=== PATIENT | female | born 1970 | race Caucasian/White ===

== ENCOUNTER 2020-01-06 12:59 | Outpatient (CLI) | payer BC, SELFPAY ==
--- NOTE | 2020-01-06 13:14 | MM_ITS ---
WS: [id number] DIAGNOSTIC BILATERAL DIGITAL MAMMOGRAM WITH CAD Bilateral breast ultrasound, complete. HISTORY: bilateral breast lumps COMPARISON: 02/21/2017 TECHNIQUE: Bilateral craniocaudad, mediolateral oblique, and mediolateral views are submitted. Spot c ompression RIGHT and LEFT CC. Computer aided detection utilized. Breast composition: The breasts are extremely dense, which lowers the sensitivity of mammography. Pal pable triangular markers are placed over each breast. There are very dense ill-defined and partially obscured masses. These were also present on the prior study from 2017. There are bilateral calcificat ions in each breast which have been present in the past. No new grouping of calcifications. No distor tion. Bilateral breast ultrasound, complete. RIGHT breast: Imaging is directed to the palpable abnormalities and 4 quadrants. There is a large co mplex cyst in the upper outer quadrant measuring 2.7 x 3.0 x 1.0 cm with mobile debris. There are add itional hypoechoic area at 9:00 which may be a lymph node. LEFT breast: Hypoechoic nodule measuring 7 x 4 x 7 mm upper outer inner quadrant LEFT breast. There i s a large cyst in the upper-outer quadrant of the LEFT breast with a maximum diameter of 3.0 cm. Ther e are multiple additional cysts. MM/[place] [id number] IMPRESSION: BI-RADS: 2-Benign FOLLOW UP: 1 Year Follow-up Patient has multiple cysts and complex cystic nodules within each breast. Due t o multiplicity these are likely benign. Similar findings were identified on 02/09. Strongly recommend patient return annually for mammography to evaluate for early subtle changes.
--- NOTE | 2020-01-06 13:16 | US_ITS ---
NOTE: Report was unsigned for reason: Order was edited. Original Signature date and time was: 01/13/20 1227 WS: [id number] DIAGNOSTIC BILATERAL DIGITAL MAMMOGRAM WITH CAD Bilateral breast ultrasound, complete. HISTORY: bilateral breast lumps COMPARISON: 02/21/2017 TECHNIQUE: Bilateral craniocaudad, mediolateral oblique, and mediolateral views are submitted. Spot compression RIGHT and LEFT CC. Computer aided detection utilized. Breast composition: The breasts are extremely dense, which lowers the sensitivity of mammography. Palpable triangular markers are placed over each breast. There are very dense ill-defined and partially obscured masses. These were also present on the prior study from 2017. There are bilateral calcifications in each breast which have been present in the past. No new grouping of calcifications. No distortion. Bilateral breast ultrasound, complete. RIGHT breast: Imaging is directed to the palpable abnormalities and 4 quadrants. There is a large complex cyst in the upper outer quadrant measuring 2.7 x 3.0 x 1.0 cm with mobile debris. There are additional hypoechoic area at 9:00 which may be a lymph node. LEFT breast: Hypoechoic nodule measuring 7 x 4 x 7 mm upper outer inner quadrant LEFT breast. There is a large cyst in the upper-outer quadrant of the LEFT breast with a maximum diameter of 3.0 cm. There are multiple additional cysts. [facility] breast BI limited* [id number] IMPRESSION: BI-RADS: 2-Benign FOLLOW UP: 1 Year Follow-up Patient has multiple cysts and complex cystic nodules within each breast. Due t o multiplicity these are likely benign. Similar findings were identified on 02/09. Strongly recommend patient return annually for mammography to evaluate for early subtle changes.
== END 2020-01-06 13:00 | disposition home or self-care (01) ==
LOC: RADSHAW 13:08
PROVIDERS: PCP Nurse Practitioner Family; Visit Provider Nurse Practitioner Family
DX: N63.22 Unspecified lump in the left breast, upper inner quadrant (principal); N63.10 Unspecified lump in the right breast, unspecified quadrant
CPT/HCPCS: 76641; 76642; 77066